=== PATIENT | female | born 1935 | race Caucasian/White ===

== ENCOUNTER 2016-08-06 11:27 | Emergency (ER) | payer MEDICARE, OTHER ==
[2016-08-06 11:40] VITALS: BP 174/94
--- NOTE | 2016-08-06 13:20 | CT ---
CT thoracic spine. Indication: Trauma. Total DOP 953. Findings: Mild subtle anterior wedging at T10 vertebral body. No definitive lucency or soft tissue s welling. Would favor this to be remote mild compression rather than acute. MRI would be more sensiti ve for acuity however. There is kyphosis of the thoracic spine. Anterior osteophytosis. Multilevel o steophytosis.. Impression: 1. There is mild wedging at T10 vertebral body this is likely not acute. 2. Degenerative changes thoracic spine.
--- NOTE | 2016-08-06 13:27 | CT ---
CT lumbar spine Total DLP 953 Findings: Mild acute compression fracture at T1 vertebral body. Minimal retropulsion of the posterio r superior endplate into the canal. There is no canal stenosis. Remainder of the vertebral segments appear intact. There is mild canal stenosis at L4-5. Facet arthropathy lower thoracic spine. Hypoden sity within the left kidney medially could indicate a cyst but recommend nonurgent ultrasound follow -up to confirm. Left adrenal adenoma. Impression: 1. Mild acute compression deformity with 10-20% height loss at L1. No canal stenosis. Findings ashraf d the ER.
[2016-08-06] MEDS ORDERED: Ketorolac 30 MG/ML SDV IVPUSH ONE (13:47)
[2016-08-06] MEDS ORDERED: Sodium Chloride 0.9% 10 ML Syringe FLUSH PRN (13:47)
[2016-08-06] MEDS ORDERED: HYDROmorphone 0.5 MG/0.5 ML Syringe IVPUSH ONE (14:21)
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
== END 2016-08-06 15:09 | disposition home or self-care (01) ==
LOC: JP.ED 11:27
DX: S32.019A Unspecified fracture of first lumbar vertebra, initial encounter for closed fracture (principal); I10 Essential (primary) hypertension; E03.9 Hypothyroidism, unspecified; F17.210 Nicotine dependence, cigarettes, uncomplicated; Z88.5 Allergy status to narcotic agent; Z79.899 Other long term (current) drug therapy; Z98.890 Other specified postprocedural states; Z90.49 Acquired absence of other specified parts of digestive tract; W18.09XA Striking against other object with subsequent fall, initial encounter
CPT/HCPCS: 72128; 72131; 96374; 99284; J1170; J1885; J7050